=== PATIENT | male | born 1960 | race African-American/Black ===

== ENCOUNTER 2016-10-20 05:06 | Emergency (ER) | payer SELFPAY ==
[~2016-10-20 05:06] MED LIST: CLIN1CAP5 PO; Z.0.NO CURRENT MEDS
[2016-10-20 05:08] VITALS: BP 179/84; PULSE 66; RESP 16; TEMP 98; O2SAT 98
[2016-10-20] MEDS ORDERED: ROBA750T PO (05:28)
[2016-10-20] MEDS ORDERED: MOBI15TA PO (05:28)
[2016-10-20] MEDS ORDERED: ULTR50TA5 PO (05:28)
--- NOTE | 2016-10-20 05:28 | PD ---
HPI Chief Complaint: Back/ Neck Pain or Injury Time Seen by Provider: 05:12 Travel History International Travel<30 days: No Contact w/Intl Traveler<30days: No Traveled to known affect area: No History of Present Illness HPI 56-year-old male complains of back pain. Patient states that he was lifting heavy object about 2 weeks ago and the pain started since then. Patient states the pain mostly cramping pain and sharp pain most severe on the right side of the low back area. Patient denies any pain radiation. Patient states that the pain is worse with bending or movement of the back. Patient denies any focal weakness or numbness of lower extremity. Patient denies any problem with bladder or bowel control. PFSH Past Medical History Diminished Hearing: No Hypertension: Yes Past Surgical History Surgical History: No Previous Surgery Social History Alcohol Use: No Tobacco Use: Yes (1 ppd) Substance Use: No Allergies-Medications (Allergen,Severity, Reaction): Coded Allergies: Aspirin (Verified Adverse Reaction, Mild, 12/31/12) Uncoded Allergies: ASPIRIN (Adverse Reaction, Mild, GI UPSET, 11/24/11) Reported Meds & Prescriptions Reported Meds & Active Scripts Active No Active Prescriptions or Reported Medications Review of Systems General / Constitutional: No: Fever Eyes: No: Visual changes HENT: No: Headaches Cardiovascular: No: Chest Pain or Discomfort Respiratory: No: Shortness of Breath Gastrointestinal: No: Abdominal Pain Genitourinary: No: Dysuria Musculoskeletal: No: Pain Skin: No Rash Neurologic: No: Weakness Psychiatric: No: Depression Endocrine: No: Polydipsia Hematologic/Lymphatic: No: Easy Bruising Physical Exam Narrative GENERAL: Well-nourished, well-developed patient. SKIN: Focused skin assessment warm/dry. HEAD: Normocephalic. EYES: No scleral icterus. No injection or drainage. NECK: Supple, trachea midline. No JVD or lymphadenopathy. CARDIOVASCULAR: Regular rate and rhythm without murmurs, gallops, or rubs. RESPIRATORY: Breath sounds equal bilaterally. No accessory muscle use. GASTROINTESTINAL: Abdomen soft, non-tender, nondistended. MUSCULOSKELETAL: No cyanosis, or edema. BACK: Moderate tenderness on palpation right lumbar area, without obvious deformity. No CVA tenderness. Negative straight leg raising the right side. Neurologic exam normal. Data Data Last Documented VS Vital Signs Date Time Temp Pulse Resp B/P Pulse Ox O2 Delivery O2 Flow Rate FiO2 10/20/16 05:08 98.0 66 16 179/84 98 Room Air Orders Acetamin-Hydrocod 325-5 Mg ([place] 5-325 (10/20/16 05:30) MDM Medical Decision Making Medical Screen Exam Complete: Yes Emergency Medical Condition: Yes Differential Diagnosis Differential diagnosis including lumbar strain, fracture, HNP Narrative Course 56-year-old male with low back pain after lifting heavy object. Lortab 5/325, one tablet by mouth given. Diagnosis Primary Impression: Acute lumbar myofascial strain Patient Instructions: General Instructions Additional Instructions: Take medication as needed for pain. Follow-up with an orthopedist if persistent problem. Moist heat to the back. Med/Other Pt SpecificInfo: Prescription(s) given Scripts Tramadol (Ultram)50 Mg Tab50 Mg PO Q6H PRN (PAIN) #30 TAB Prov:Hu Lewis MD 10/20/16 Methocarbamol (Robaxin)750 Mg [id number] Mg PO QID #40 TAB Prov:Hu Lewis MD 10/20/16 Meloxicam (Mobic)15 Mg Tab15 Mg PO DAILY #30 TAB Prov:Hu Lewis MD 10/20/16 Disposition: 01 DISCHARGE HOME Condition: Stable Hu Lewis MD Oct 20, 2016 05:28
[2016-10-20] MEDS ORDERED: ACETAMINOPHEN/HYDROcodone 325 MG/5 MG TAB PO ONE (05:30)
--- NOTE | 2016-10-20 06:06 | RADRPT ---
EXAM DATE/TIME: 10/20/2016 05:42 [facility] COMPARISON: No previous studies available for comparison. INDICATIONS : Lower back pain. MEDICAL HISTORY : None. SURGICAL HISTORY : None. ENCOUNTER: Initial ACUITY: 1 day PAIN SCORE: 0/10 LOCATION: Bilateral back FINDINGS: Two view examination was performed. There are five non-rib bearing vertebral bodies. The vertebral bodies are in normal alignment without evidence of subluxation or scoliosis. Mild degenerative disc c hanges are present at the L4-5 level with mild disc space narrowing and hypertrophic spurring. The pe dicles are intact. Bony mineralization is normal. No fracture is identified. CONCLUSION: 1. Mild degenerative disc change at the L4-5 level. Kris Molina MD on October 20, 2016 at 6:04 Board Certified Radiologist. This report was verified electronically.
[2016-10-20 07:00] VITALS: RESP 16
[2016-10-20 07:29] VITALS: BP 130/77; TEMP 97.8
== END 2016-10-20 07:29 | disposition home or self-care (01) ==
LOC: NEPE 05:06
DX: S39.012A Strain of muscle, fascia and tendon of lower back, initial encounter (principal); X50.9XXA Other and unspecified overexertion or strenuous movements or postures, initial encounter
CPT/HCPCS: 72100; 99284